=== PATIENT | male | born 1985 | race Hispanic/Latino ===

== ENCOUNTER 2018-05-07 11:21 | Emergency (ER) | payer SELFPAY ==
[~2018-05-07 11:21] MED LIST: Iopamidol 370 76% 100 ML VIAL ONE
[2018-05-07] MEDS ORDERED: Sodium Chloride 0.9% 1,000 ML ONE (11:58)
[2018-05-07] MEDS ORDERED: Morphine 4 MG/ML VIAL ONE (11:58)
[2018-05-07] MEDS ORDERED: Ondansetron PF 4 MG/2 ML Vial ONE (11:58)
[2018-05-07 12:33] LABS: Bilirubin Small (Negative); Blood, Urine Negative (Negative); Clarity Clear (Clear); Glucose, Urine (Dipstick) Negative (Negative); Leukocyte Negative (Negative); Nitrite Negative (Negative); Protein, Urine (Dipstick) 30 mg/dL (Neg-Trace); pH, Urine 5.5 (5.0-9.0)
[2018-05-07 12:34] LABS: Specific Gravity, Urine 1.039 (1.002-1.036)
[2018-05-07 12:38] LABS: RBC/HPF 0-3 HPF (0-3)
[2018-05-07 12:39] LABS: Bacteria/HPF Rare-Few HPF (None Seen); Squamous Epithelial 0-3 HPF (0-3); WBC/HPF 0-3 HPF (0-3)
[2018-05-07] MEDS ORDERED: metroNIDAZOLE 500 MG/100 ML BAG ONE (12:45)
[2018-05-07 13:01] LABS: #Lymphocytes 0.4 thou/uL (1.20-3.40); #Monocytes 0.6 thou/uL (0.11-0.59); #Neutrophils 9.9 thou/uL (1.40-6.50); %Basophils 0.3 % (0.0-1.0); %Lymphocytes 3.6 % (21.0-51.0); %Monocytes 5.3 % (0.0-10.0); %Neutrophils 90.8 % (42.0-75.0); Hemoglobin 16.1 g/dL (14.0-18.0); Mean Corpuscular HGB CONC 34.5 g/dL (32.0-36.0); Mean Platelet Volume 8.1 fL (7.4-10.4); Platelet Count 155 thou/uL (130-400); RBC Distribution Width 10.5 % (11.5-14.5); Red Blood Cell (RBC) Count 5.18 mill/uL (4.70-6.10); White Blood Cell (WBC) Count 10.9 thou/uL (4.8-10.8)
[2018-05-07 13:18] LABS: ALT (SGPT) 80 U/L (8-55); AST (SGOT) 44 U/L (5-34); Albumin 4.4 g/dL (3.5-5.0); Alkaline Phosphatase 98 U/L (40-150); Anion Gap 14 mmol/L (10-20); BUN (Urea Nitrogen) 17 mg/dL (8.9-20.6); Calc. Creatinine Clearance 0 mL/min (70-130); Calcium 9.2 mg/dL (7.8-10.44); Carbon Dioxide 25 mmol/L (22-29); Chloride 99 mmol/L (98-107); Estimated GFR-MDRD Greater than 90; Glucose 123 mg/dL (70-105); Lipase 38 U/L (8-78); Potassium 4.2 mmol/L (3.5-5.1); Protein, Total 7.4 g/dL (6.0-8.3); Sodium 134 mmol/L (136-145)
--- NOTE | 2018-05-07 13:18 | CT ---
CT ABDOMEN AND PELVIS WITH IV CONTRAST: Date: 05/07/18 HISTORY: Right lower quadrant pain with vomiting. FINDINGS: The lung bases are clear. The liver, spleen, pancreas, adrenal glands, and kidneys are normal. No giana cified gallstones are seen. No free air, free fluid, or lymphadenopathy seen in the abdomen or pelvis . The small bowel loops are not abnormally dilated. Appendix is abnormally distended and fluid-filled with mild periappendiceal inflammatory changes. Calcified appendicoliths are present. IMPRESSION: Findings are suspicious for acute appendicitis. Discussed over the telephone with ER physician, Dr. Anabelle Elam, at 1233 hours. CODE CR. POS: [facility]
== END 2018-05-07 13:07 | disposition short-term general hospital (02) ==
LOC: MADERS 11:21
DX: K35.80 Unspecified acute appendicitis (principal)
CPT/HCPCS: 36415; 74177; 80053; 81003; 81015; 83690; 85025; 87040; 96361; 96365; 96375; J2270; J2405; J7050